=== PATIENT | female | born 1970 | race Caucasian/White ===

== ENCOUNTER 2020-08-24 21:57 | Observation (INO) ==
[2020-08-24 22:36] LABS: Basophils % 0.3 %; Eosinophils # 0.2 K/mcL (0.0-0.6); Eosinophils % 1.4 %; Hematocrit 38.5 % (35.3-44.9); Hemoglobin 12.1 g/dL (11.5-15.4); Immature Granulocytes % 0.3 % (0-4); Lymphocytes # 3.5 K/mcL (0.6-4.6); Lymphocytes % 31.3 %; Mean Corpuscular HGB Conc 31.4 g/dL (31.6-35.5); Mean Corpuscular Hemoglobin 31.4 pg (28.0-33.3); Mean Platelet Volume 9.9 fL (9.4-12.4); Monocytes % 8.9 %; Neutrophils # 6.4 K/mcL (1.6-8.9); Platelet Count 321 K/mcL (140-400); Red Blood Count 3.85 M/mcL (3.82-4.97); Red Cell Distribution Width 13.9 % (11.5-14.5); Segmented Neutrophils % 57.8 %; White Blood Count 11.1 K/mcL (4.3-11.1)
[2020-08-24 22:58] LABS: BUN/Creatinine Ratio 18 (6-26); Blood Urea Nitrogen 14 mg/dL (6-20); Calcium 9.1 mg/dL (8.6-10.3); Carbon Dioxide 23 mEq/L (23-29); Chloride 98 mEq/L (98-107); Glucose 174 mg/dL (70-105); Osmolality,Calculated 285 (280-300); Sodium 135 mEq/L (136-145); eGFR For African Americans > 60 (> 60); eGFR For Non-African Americans > 60 (> 60)
[2020-08-24 23:38] LABS: Adenovirus Not Detected (Not Detect); Bordetella Pertussis Not Detected (Not Detect); Chlamydophila pneumoniae Not Detected (Not Detect); Coronavirus 229E Not Detected (Not Detect); Coronavirus HKU1 Not Detected (Not Detect); Coronavirus NL63 Not Detected (Not Detect); Coronavirus OC43 Not Detected (Not Detect); Human Metapneumovirus Not Detected (Not Detect); Human Rhinovirus/Enterovirus Not Detected (Not Detect); Influenza A Subtype 2009 H1 Not Detected (Not Detect); Influenza B Not Detected (Not Detect); Mycoplasma pneumoniae Not Detected (Not Detect); Parainfluenza Virus 1 Not Detected (Not Detect); Parainfluenza Virus 2 Not Detected (Not Detect); Parainfluenza Virus 3 Not Detected (Not Detect); Parainfluenza Virus 4 Not Detected (Not Detect); Respiratory Syncytial Virus Not Detected (Not Detect); SARS-CoV-2 Not Detected (Not Detect)
[2020-08-25] MEDS ORDERED: Ibuprofen 600 MG TABLET PO PRN (01:16)
[2020-08-25] MEDS ORDERED: tiZANidine 4 MG TABLET PO PRN (01:16)
[2020-08-25] MEDS ORDERED: D5% in Water 1,000 ML IVC PRN (01:20)
[2020-08-25] MEDS ORDERED: Dextrose Gel 15 GM/37.5 ML TUBE PO PRN ×2 (01:20)
[2020-08-25] MEDS ORDERED: *HR* Dextrose 50 % in Water (Vial) 50 ML VIAL IVP PRN (01:20)
[2020-08-25] MEDS ORDERED: traZODone 50 MG TABLET PO SCH (01:30)
[2020-08-25] MEDS ORDERED: Naloxone 0.4 MG/ML INJ IVP PRN (01:35)
[2020-08-25] MEDS ORDERED: *HR* HYDROcodone/Acet 5/325 mg TABLET PO PRN (01:35)
[2020-08-25] MEDS: Insulin LISPRO 300 UNITS/3 ML VIAL SUBQ SCH ×5 (01:35→20:14)
[2020-08-25] MEDS ORDERED: Ondansetron 4 MG/2 ML VIAL IVP PRN (01:35)
[2020-08-25] MEDS ORDERED: Acetaminophen 325 MG TABLET PO PRN (01:35)
[2020-08-25] MEDS ORDERED: 0.9 % Sodium Chloride 1,000 ML IVC SCH (01:45)
[2020-08-25 02:57] LABS: INR 1.2; Prothrombin Time 13.8 Seconds (9.4-12.1)
[2020-08-25 02:58] LABS: Hemoglobin 11.2 g/dL (11.5-15.4); Segmented Neutrophils % 50.2 %
[2020-08-25 02:59] LABS: Hematocrit 37.2 % (35.3-44.9); Immature Granulocytes % 0.3 % (0-4); Immature Platelets 3.6 % (1.1-6.1); Lymphocytes % 38.7 %; Mean Corpuscular HGB Conc 30.1 g/dL (31.6-35.5); Mean Corpuscular Hemoglobin 30.8 pg (28.0-33.3); Mean Corpuscular Volume 102.2 fL (83.0-100.0); Mean Platelet Volume 10.4 fL (9.4-12.4); Monocytes % 8.3 %; Platelet Count 301 K/mcL (140-400); Red Blood Count 3.64 M/mcL (3.82-4.97); White Blood Count 10.8 K/mcL (4.3-11.1)
[2020-08-25 03:00] LABS: Activated Partial Thrombo Time 23.7 Seconds (26.0-36.0); Basophils # 0.1 K/mcL (0.0-0.2); Basophils % 0.6 %; Eosinophils # 0.2 K/mcL (0.0-0.6); Eosinophils % 1.9 %; Lymphocytes # 4.2 K/mcL (0.6-4.6); Monocytes # 0.9 K/mcL (0.0-1.3); Neutrophils # 5.4 K/mcL (1.6-8.9)
[2020-08-25 03:13] LABS: Alanine Aminotransferase 7 Units/L (7-52); Albumin 3.6 g/dL (3.5-5.7); Albumin/Globulin Ratio 1.2 (1.1-2.2); Alkaline Phosphatase 74 Units/L (34-104); Aspartate Amino Transferase 6 Units/L (13-39); BUN/Creatinine Ratio 18 (6-26); Bilirubin,Total 0.3 mg/dL (0.3-1.0); Blood Urea Nitrogen 16 mg/dL (6-20); Calcium 8.8 mg/dL (8.6-10.3); Carbon Dioxide 23 mEq/L (23-29); Chloride 100 mEq/L (98-107); Chol/HDL Ratio 3.7 (0-4.9); Cholesterol 123 mg/dL (< 200); Globulin 3.1 g/dL (2.4-3.5); Glucose 121 mg/dL (70-105); HDL Cholesterol 33 mg/dL (40-59); LDL Cholesterol,Calculated 11 mg/dL (< 100); Magnesium 1.8 mg/dL (1.6-2.6); Osmolality,Calculated 282 (280-300); Phosphorous 4.5 mg/dL (2.7-4.5); Potassium 4.2 mEq/L (3.5-5.1); Sodium 135 mEq/L (136-145); Total Protein 6.7 g/dL (6.4-8.9); Triglycerides 393 mg/dL (< 150); eGFR For African Americans > 60 (> 60); eGFR For Non-African Americans > 60 (> 60)
[2020-08-25 08:15] LABS: Estimated Average Glucose 146 mg/dl; Hemoglobin A1C 6.7 %
[2020-08-25] MEDS ORDERED: lisinopriL 10 MG TABLET PO SCH (09:00)
[2020-08-25] MEDS ORDERED: COLESTID PO SCH (09:00)
[2020-08-25] MEDS: Lurasidone 20 MG TABLET PO SCH (09:21)
[2020-08-25] MEDS: BuPROPion XL (24 HR) 150 MG TABLET PO SCH (09:21)
[2020-08-25 09:22] LABS: Hematocrit 37.6 % (35.3-44.9); Hemoglobin 11.6 g/dL (11.5-15.4)
[2020-08-25] MEDS: *HR* HYDROcodone/Acet 5/325 mg TABLET PO PRN ×3 (09:22→23:59)
[2020-08-25] MEDS: *HR* OxyCODONE Immed Rel 5 MG TABLET PO PRN ×2 (13:25→20:13)
[2020-08-25] MEDS ORDERED: Acetaminophen IV 1,000 MG/100 ML BAG IVPB ONE (14:53)
[2020-08-25] MEDS: 0.9 % Sodium Chloride 1,000 ML IVC SCH (16:56)
[2020-08-25] MEDS ORDERED: haloperidoL 5 MG TABLET PO SCH (18:00)
[2020-08-25] MEDS ORDERED: Divalproex (24 HR) 500 MG TABLET PO SCH (21:00)
[2020-08-26 01:31] LABS: Basophils # 0.1 K/mcL (0.0-0.2); Basophils % 0.5 %; Eosinophils # 0.2 K/mcL (0.0-0.6); Eosinophils % 2.4 %; Hematocrit 36.4 % (35.3-44.9); Hemoglobin 11.5 g/dL (11.5-15.4); Immature Granulocytes % 0.3 % (0-4); Lymphocytes # 3.3 K/mcL (0.6-4.6); Lymphocytes % 35.7 %; Mean Corpuscular HGB Conc 31.6 g/dL (31.6-35.5); Mean Corpuscular Hemoglobin 31.7 pg (28.0-33.3); Mean Corpuscular Volume 100.3 fL (83.0-100.0); Mean Platelet Volume 10.1 fL (9.4-12.4); Monocytes # 0.8 K/mcL (0.0-1.3); Monocytes % 8.9 %; Neutrophils # 4.8 K/mcL (1.6-8.9); Platelet Count 300 K/mcL (140-400); Red Blood Count 3.63 M/mcL (3.82-4.97); Segmented Neutrophils % 52.2 %; White Blood Count 9.1 K/mcL (4.3-11.1)
[2020-08-26 01:51] LABS: BUN/Creatinine Ratio 15 (6-26); Blood Urea Nitrogen 10 mg/dL (6-20); Calcium 8.5 mg/dL (8.6-10.3); Carbon Dioxide 23 mEq/L (23-29); Chloride 102 mEq/L (98-107); Glucose 110 mg/dL (70-105); Osmolality,Calculated 284 (280-300); Potassium 3.8 mEq/L (3.5-5.1); Sodium 137 mEq/L (136-145); eGFR For African Americans > 60 (> 60); eGFR For Non-African Americans > 60 (> 60)
[2020-08-26] MEDS: *HR* OxyCODONE Immed Rel 5 MG TABLET PO PRN (03:01)
[2020-08-26] MEDS: 0.9 % Sodium Chloride 1,000 ML IVC SCH (03:01)
[2020-08-26] MEDS ORDERED: *HR* HYDROmorphone PF 0.5 MG/0.5 ML SYRINGE IVP PRN ×2 (07:03→12:06)
[2020-08-26] MEDS ORDERED: Promethazine 6.25 MG in Water for inj. (sterile) 20 ML IVPB PRN ×2 (07:03→12:06)
[2020-08-26] MEDS ORDERED: *HR* Meperidine 25 MG/ML SYRINGE IVP PRN ×2 (07:03→12:06)
[2020-08-26] MEDS ORDERED: *HR* FentaNYL (PF) 100 MCG/2 ML VIAL IVP PRN ×2 (07:03→12:06)
[2020-08-26] MEDS ORDERED: *HR* Midazolam HCl 2 MG/2 ML VIAL IVP PRN ×2 (07:03→12:06)
[2020-08-26] MEDS ORDERED: *HR* Succinylcholine 200 MG/10 ML VIAL IVP ONE (07:09)
[2020-08-26] MEDS ORDERED: Lidocaine -MPF 2% 2 ML VIAL ONE (07:09)
[2020-08-26] MEDS ORDERED: Ondansetron 4 MG/2 ML VIAL ONE (07:09)
[2020-08-26] MEDS ORDERED: *HR* Propofol 200 MG/20 ML VIAL IVP ONE ×2 (07:09)
[2020-08-26] MEDS ORDERED: Acetaminophen IV 1,000 MG/100 ML BAG IVPB ONE (07:39)
[2020-08-26] MEDS ORDERED: *HR* Magnesium Sulfate 1 GM/2 ML VIAL ONE (07:40)
[2020-08-26] MEDS: Insulin LISPRO 300 UNITS/3 ML VIAL SUBQ SCH ×4 (07:42→20:24)
[2020-08-26] MEDS ORDERED: *HR* HYDROMORPHONE 2 MG/ML VIAL ONE ×2 (07:43→10:28)
[2020-08-26] MEDS: Lurasidone 20 MG TABLET PO SCH (08:29)
[2020-08-26] MEDS: BuPROPion XL (24 HR) 150 MG TABLET PO SCH (08:29)
[2020-08-26] MEDS ORDERED: OLANZapine 10 MG TAB.RAPDIS PO SCH (09:00)
[2020-08-26] MEDS ORDERED: CeFAZolin Syr 2,000MG/20 ML 2,000 MG/20 ML SYRINGE IVPB ONE (09:11)
[2020-08-26] MEDS ORDERED: Ketorolac 30 MG/ML VIAL ONE (10:43)
[2020-08-26] MEDS ORDERED: *HR* HYDROcodone/Acet 5/325 mg TABLET PO PRN (12:06)
[2020-08-26] MEDS ORDERED: *HR* Dextrose 50 % in Water (Vial) 50 ML VIAL IVP PRN (12:06)
[2020-08-26] MEDS ORDERED: Naloxone 0.4 MG/ML INJ IVP PRN (12:06)
[2020-08-26] MEDS ORDERED: Acetaminophen 325 MG TABLET PO PRN (12:06)
[2020-08-26] MEDS ORDERED: Dextrose Gel 15 GM/37.5 ML TUBE PO PRN ×2 (12:06)
[2020-08-26] MEDS ORDERED: tiZANidine 4 MG TABLET PO PRN (12:06)
[2020-08-26] MEDS ORDERED: *HR* OxyCODONE Immed Rel 5 MG TABLET PO PRN (12:06)
[2020-08-26] MEDS ORDERED: D5% in Water 1,000 ML IVC PRN (12:06)
[2020-08-26] MEDS ORDERED: Ondansetron 4 MG/2 ML VIAL IVP PRN (12:06)
[2020-08-26] MEDS: haloperidoL 5 MG TABLET PO SCH (17:08)
[2020-08-26] MEDS: Divalproex (24 HR) 500 MG TABLET PO SCH (20:28)
[2020-08-26] MEDS: *HR* HYDROcodone/Acet 5/325 mg TABLET PO PRN (20:34)
[2020-08-27] MEDS: *HR* HYDROcodone/Acet 5/325 mg TABLET PO PRN ×3 (04:19→18:47)
[2020-08-27 05:15] LABS: Basophils % 0.4 %; Eosinophils # 0.1 K/mcL (0.0-0.6); Eosinophils % 0.6 %; Hematocrit 36.6 % (35.3-44.9); Hemoglobin 11.1 g/dL (11.5-15.4); Immature Granulocytes % 0.9 % (0-4); Lymphocytes # 3.5 K/mcL (0.6-4.6); Lymphocytes % 30.9 %; Mean Corpuscular HGB Conc 30.3 g/dL (31.6-35.5); Mean Corpuscular Hemoglobin 30.6 pg (28.0-33.3); Mean Corpuscular Volume 100.8 fL (83.0-100.0); Mean Platelet Volume 10.2 fL (9.4-12.4); Monocytes # 1.1 K/mcL (0.0-1.3); Monocytes % 9.9 %; Neutrophils # 6.5 K/mcL (1.6-8.9); Platelet Count 280 K/mcL (140-400); Red Blood Count 3.63 M/mcL (3.82-4.97); Red Cell Distribution Width 13.5 % (11.5-14.5); Segmented Neutrophils % 57.3 %; White Blood Count 11.2 K/mcL (4.3-11.1)
[2020-08-27 05:32] LABS: BUN/Creatinine Ratio 19 (6-26); Blood Urea Nitrogen 10 mg/dL (6-20); Calcium 8.5 mg/dL (8.6-10.3); Carbon Dioxide 26 mEq/L (23-29); Chloride 103 mEq/L (98-107); Glucose 107 mg/dL (70-105); Osmolality,Calculated 284 (280-300); Potassium 4.4 mEq/L (3.5-5.1); Sodium 137 mEq/L (136-145); eGFR For African Americans > 60 (> 60); eGFR For Non-African Americans > 60 (> 60)
[2020-08-27] MEDS: Insulin LISPRO 300 UNITS/3 ML VIAL SUBQ SCH ×4 (07:52→19:38)
[2020-08-27] MEDS: OLANZapine 10 MG TAB.RAPDIS PO SCH (07:54)
[2020-08-27] MEDS: BuPROPion XL (24 HR) 150 MG TABLET PO SCH (07:55)
[2020-08-27] MEDS: Lurasidone 20 MG TABLET PO SCH (07:55)
[2020-08-27] MEDS: *HR* Rivaroxaban 10 MG TABLET PO SCH (17:30)
[2020-08-27] MEDS: haloperidoL 5 MG TABLET PO SCH (17:30)
[2020-08-27] MEDS: Divalproex (24 HR) 500 MG TABLET PO SCH (19:39)
[2020-08-28] MEDS: *HR* HYDROcodone/Acet 5/325 mg TABLET PO PRN ×3 (00:48→17:07)
[2020-08-28 01:27] LABS: Basophils # 0.1 K/mcL (0.0-0.2); Basophils % 0.6 %; Eosinophils # 0.2 K/mcL (0.0-0.6); Eosinophils % 1.9 %; Hematocrit 35.2 % (35.3-44.9); Hemoglobin 10.9 g/dL (11.5-15.4); Immature Granulocytes % 0.6 % (0-4); Lymphocytes # 3.8 K/mcL (0.6-4.6); Lymphocytes % 38.2 %; Mean Corpuscular Hemoglobin 31.4 pg (28.0-33.3); Mean Corpuscular Volume 101.4 fL (83.0-100.0); Monocytes # 0.8 K/mcL (0.0-1.3); Monocytes % 8.1 %; Platelet Count 299 K/mcL (140-400); Red Blood Count 3.47 M/mcL (3.82-4.97); Red Cell Distribution Width 13.9 % (11.5-14.5); Segmented Neutrophils % 50.6 %; White Blood Count 9.8 K/mcL (4.3-11.1)
[2020-08-28 01:59] LABS: BUN/Creatinine Ratio 27 (6-26); Blood Urea Nitrogen 12 mg/dL (6-20); Calcium 8.7 mg/dL (8.6-10.3); Carbon Dioxide 28 mEq/L (23-29); Chloride 103 mEq/L (98-107); Glucose 119 mg/dL (70-105); Osmolality,Calculated 289 (280-300); Potassium 4.3 mEq/L (3.5-5.1); Sodium 139 mEq/L (136-145); eGFR For African Americans > 60 (> 60); eGFR For Non-African Americans > 60 (> 60)
[2020-08-28] MEDS: Insulin LISPRO 300 UNITS/3 ML VIAL SUBQ SCH ×4 (09:32→20:32)
[2020-08-28] MEDS: Lurasidone 20 MG TABLET PO SCH (09:36)
[2020-08-28] MEDS: BuPROPion XL (24 HR) 150 MG TABLET PO SCH (09:36)
[2020-08-28] MEDS: OLANZapine 10 MG TAB.RAPDIS PO SCH (09:37)
[2020-08-28] MEDS: haloperidoL 5 MG TABLET PO SCH (17:03)
[2020-08-28] MEDS: *HR* Rivaroxaban 10 MG TABLET PO SCH (17:03)
[2020-08-28] MEDS: Divalproex (24 HR) 500 MG TABLET PO SCH (20:32)
[2020-08-29] MEDS: *HR* HYDROcodone/Acet 5/325 mg TABLET PO PRN ×4 (00:17→23:09)
[2020-08-29 02:44] LABS: Basophils # 0.1 K/mcL (0.0-0.2); Basophils % 0.7 %; Eosinophils # 0.2 K/mcL (0.0-0.6); Eosinophils % 2.6 %; Hematocrit 36.2 % (35.3-44.9); Hemoglobin 11.2 g/dL (11.5-15.4); Immature Granulocytes % 0.4 % (0-4); Lymphocytes # 3.9 K/mcL (0.6-4.6); Lymphocytes % 43.9 %; Mean Corpuscular HGB Conc 30.9 g/dL (31.6-35.5); Mean Corpuscular Hemoglobin 31.5 pg (28.0-33.3); Monocytes # 0.7 K/mcL (0.0-1.3); Monocytes % 7.6 %; Platelet Count 309 K/mcL (140-400); Red Blood Count 3.55 M/mcL (3.82-4.97); Red Cell Distribution Width 14.1 % (11.5-14.5); Segmented Neutrophils % 44.8 %; White Blood Count 8.9 K/mcL (4.3-11.1)
[2020-08-29 03:04] LABS: BUN/Creatinine Ratio 19 (6-26); Blood Urea Nitrogen 9 mg/dL (6-20); Calcium 8.9 mg/dL (8.6-10.3); Carbon Dioxide 28 mEq/L (23-29); Chloride 104 mEq/L (98-107); Glucose 117 mg/dL (70-105); Osmolality,Calculated 292 (280-300); Potassium 3.6 mEq/L (3.5-5.1); Sodium 141 mEq/L (136-145); eGFR For African Americans > 60 (> 60); eGFR For Non-African Americans > 60 (> 60)
[2020-08-29] MEDS: Insulin LISPRO 300 UNITS/3 ML VIAL SUBQ SCH ×4 (09:23→20:46)
[2020-08-29] MEDS: OLANZapine 10 MG TAB.RAPDIS PO SCH (09:29)
[2020-08-29] MEDS: BuPROPion XL (24 HR) 150 MG TABLET PO SCH (09:29)
[2020-08-29] MEDS: Lurasidone 20 MG TABLET PO SCH (10:01)
[2020-08-29] MEDS: *HR* Rivaroxaban 10 MG TABLET PO SCH (16:50)
[2020-08-29] MEDS: haloperidoL 5 MG TABLET PO SCH (16:50)
[2020-08-29] MEDS: Divalproex (24 HR) 500 MG TABLET PO SCH (20:51)
[2020-08-30] MEDS: Insulin LISPRO 300 UNITS/3 ML VIAL SUBQ SCH ×4 (08:13→21:23)
[2020-08-30] MEDS: Lurasidone 20 MG TABLET PO SCH (09:04)
[2020-08-30] MEDS: BuPROPion XL (24 HR) 150 MG TABLET PO SCH (09:04)
[2020-08-30] MEDS: *HR* HYDROcodone/Acet 5/325 mg TABLET PO PRN ×3 (09:04→21:22)
[2020-08-30] MEDS: OLANZapine 10 MG TAB.RAPDIS PO SCH (09:04)
[2020-08-30] MEDS: *HR* Rivaroxaban 10 MG TABLET PO SCH (17:13)
[2020-08-30] MEDS: haloperidoL 5 MG TABLET PO SCH (17:13)
[2020-08-30 19:03] LABS: Influenza A PCR Negative (Negative); Influenza B PCR Negative (Negative); Resp. Syncytial Virus PCR Negative (Negative)
[2020-08-30 19:04] LABS: SARS-CoV-2 by PCR (In House) Negative (Negative)
[2020-08-30] MEDS: Divalproex (24 HR) 500 MG TABLET PO SCH (21:22)
[2020-08-30 23:21] VITALS: BP 146/76
== END 2020-08-31 01:40 ==
LOC: EMEROOARM 21:57 → 3NENU 21:57 → SUATTDRO 23:42 → 3NENU 08-25 00:35
PROVIDERS: ADMIT Internal Medicine Nephrology; ATTEND Internal Medicine